=== PATIENT | male | born 1970 | race Caucasian/White ===

== ENCOUNTER 2016-12-15 19:44 | Emergency (ER) | payer OTHER ==
[~2016-12-15] VITALS: Ht 182.9 cm; Wt 85.0 kg
[2016-12-15 19:47] VITALS: BP 141/106; PULSE 93; RESP 16; TEMP 98.1; O2SAT 98
[2016-12-15] MEDS ORDERED: XANA1TAB2 PO (19:55)
[2016-12-15] MEDS ORDERED: METF500T PO (19:55)
[2016-12-15] MEDS ORDERED: CHOLESTEROL TAB PO (19:55)
--- NOTE | 2016-12-15 19:57 | PD ---
HPI Chief Complaint: Laceration/Skin Injury Time Seen by Provider: 19:57 Travel History International Travel<30 days: No Contact w/Intl Traveler<30days: No Traveled to known affect area: No History of Present Illness HPI 46-year-old male presents to [facility] with laceration to the left palmar thumb. Patient was working on a woodcarving when his hand slipped and the knife cut his greater thenar eminence on the left hand. Patient denies numbness tingling or loss of function. He did have a significant amount of bleeding, and fire department applied quick clot and pressure bandage to the thumb and hand. He has no significant pain at this time. Patient has no other injury. He is unsure of his last tetanus shot. He is allergic to morphine. [facility] Past Medical History Diabetes: Yes Social History Alcohol Use: No Tobacco Use: Yes Substance Use: No Allergies-Medications (Allergen,Severity, Reaction): Coded Allergies: Morphine (Verified Adverse Reaction, Severe, Nausea/Vomiting, 12/15/16) Reported Meds & Prescriptions Reported Meds & Active Scripts Active Reported Xanax (Alprazolam) 1 Mg Tab 1 Mg PO DAILY PRN [Cholesterol Tab] 1 Tab PO HS Metformin (Metformin HCl) 500 Mg Tab 500 Mg PO TIDPC With meals Review of Systems Except as stated in HPI: all other systems reviewed are Neg General / Constitutional: No: Fever Eyes: No: Visual changes HENT: No: Headaches Cardiovascular: No: Chest Pain or Discomfort Respiratory: No: Shortness of Breath Gastrointestinal: No: Abdominal Pain Genitourinary: No: Dysuria Musculoskeletal: No: Pain Skin: No Rash Neurologic: No: Weakness Psychiatric: No: Depression Endocrine: No: Polydipsia Hematologic/Lymphatic: No: Easy Bruising Physical Exam Narrative GENERAL: Patient appears no acute distress. SKIN: Warm and dry. Color. Normal turgor. Patient has a 4 cm linear laceration which is full-thickness but does not involve the underlying tendons or muscle of the left greater thenar eminence. There is no involvement of the joint capsule of the MIP joint of the left thumb. HEAD: Atraumatic. Normocephalic. EYES: Pupils equal and round. No scleral icterus. No injection or drainage. ENT: No nasal bleeding or discharge. Mucous membranes pink and moist. Pharynx is clear. Airway is patent. NECK: Trachea midline. Neck is supple nontender. CARDIOVASCULAR: Regular rate and rhythm. RESPIRATORY: No accessory muscle use. Clear to auscultation. Breath sounds equal bilaterally. MUSCULOSKELETAL: Extremities without clubbing, cyanosis, or edema. No obvious deformities. Patient has normal neurovascular exam distal to the wound as well as full function of the left thumb without pain. NEUROLOGICAL: Awake and alert. No obvious cranial nerve deficits. Motor grossly within normal limits. Five out of 5 muscle strength in the arms and legs. Normal speech. PSYCHIATRIC: Appropriate mood and affect; insight and judgment normal. Data Data Last Documented VS Vital Signs Date Time Temp Pulse Resp B/P Pulse Ox O2 Delivery O2 Flow Rate FiO2 12/15/16 19:47 98.1 93 16 141/106 98 Orders Tetanus/Diphtheria Tox Adult (Tetanus/Di (12/15/16 20:15) Lidocai-Epi 1%-1:100,000 Inj (Xylocaine- (12/15/16 20:45) MDM Medical Decision Making Medical Screen Exam Complete: Yes Emergency Medical Condition: Yes Differential Diagnosis Laceration left thumb. Risk for cellulitis. Need for tetanus. Narrative Course Patient is medically stable at time of exam. Left hand is thoroughly soaked in saline and Betadine solution for greater than 15 minutes. Laceration is repaired after cleaning out all the quick clot material. Please see procedure note. Patient is given Keflex 500 mg by mouth now. Patient is given a tetanus 0.5 mg IM. Patient will be continued on Keflex 500 mg 3 times a day 7 days. Dressing is to remain in place for the next 2 days. Patient is to follow with his primary care physician in 2 days for wound check or return here for the same. Sutures should remain in place for 10 days. Work note is given for tomorrow. Procedures Procedure Narrative LACERATION LOCATION: Left thenar eminence LENGTH: 4 cm NUMBER OF STITCHES/KARAN: 3 interrupted vertical mattress, 4 interrupted simple REPAIR: The area of the laceration was prepped with Betadine and sterilely draped. The laceration was infiltrated with 4 mL was 1% lidocaine with epi. The wound was copiously irrigated and explored without evidence of foreign body , tendon injury or neurovascular injury. The wound was closed using 4-0 Prolene. This was a single layer repair. A sterile dressing was applied. The patient was advised to keep the dressing clean and dry. Patient tolerated the procedure well. Diagnosis Primary Impression: Laceration of left hand without complication, including fingers Qualified Code: S61.412A - Laceration of left hand without complication, including fingers, initial encounter Referrals: Primary Care Physician 2 days Patient Instructions: General Instructions, Laceration (ED) Additional Instructions: Left hand is thoroughly soaked in saline and Betadine solution for greater than 15 minutes. Laceration is repaired after cleaning out all the quick clot material. Please see procedure note. Patient is given Keflex 500 mg by mouth now. Patient is given a tetanus 0.5 mg IM. Patient will be continued on Keflex 500 mg 3 times a day 7 days. Dressing is to remain in place for the next 2 days. Patient is to follow with his primary care physician in 2 days for wound check or return here for the same. Sutures should remain in place for 10 days. Work note is given for tomorrow. Med/Other Pt SpecificInfo: Prescription(s) given, Wound Care Disposition: 01 DISCHARGE HOME Condition: Stable Ata Ayala Dec 15, 2016 19:57
[2016-12-15] MEDS ORDERED: TETANUS/DIPHTHERIA TOXOID ADULT 0.5 ML VIAL IM ONE (20:15)
[2016-12-15] MEDS ORDERED: LIDOCAINE 1%/EPINEPHrine 1:100,000 SOLN 20 ML VIAL INFIL ONE (20:45)
[2016-12-15] MEDS ORDERED: CEPHALEXIN MONOHYDRATE 500 MG CAP PO ONE (21:30)
== END 2016-12-15 21:32 | disposition home or self-care (01) ==
LOC: PHEFT 19:44
DX: S61.012A Laceration without foreign body of left thumb without damage to nail, initial encounter (principal); E11.9 Type 2 diabetes mellitus without complications; Z72.0 Tobacco use; Y92.9 Unspecified place or not applicable; W26.0XXA Contact with knife, initial encounter; Y93.89 Activity, other specified; Z23 Encounter for immunization
CPT/HCPCS: 12002; 90471; 90714